=== PATIENT | female | born 1950 | race Caucasian/White ===

== ENCOUNTER 2016-06-06 12:30 | Day surgery (SDC) | payer MEDICARE, BC ==
[2016-05-30 13:20] LABS: HEMOGLOBIN 12.4 g/dL (12.0-16.0)
[2016-05-30 13:22] LABS: HEMATOCRIT 36.8 % (36.0-48.0)
[2016-05-30 13:34] LABS: ASCORBIC ACID (UR NOT ORDER) 40 (NEG); BILIRUBIN, URINE NEGATIVE (NEG); KETONE, URINE TRACE MG/DL (NEG); LEUKOCYTE ESTERASE(NOT OR MOD (NEG); WBC (NOT ORDERED) (RFLEX) 102 (0-5)
--- NOTE | ~2016-06-06 | OP ---
Record Of [address] [place]. [address] NAME: CRISTIANO OJEDA : [birth year] STATUS : [facility]#: [id number] AGE: 66 ADM/REG DATE : 06/06/16 MR#: [id number] REPORT SERV DATE: 06/06/16 DICTATED BY: MATTHEW VALDEZ JR. DATE: 06/06/16 REPORT STATUS : Draft TRANSCRIBED BY: JERICHO DATE: 06/06/16 DATE OF PROCEDURE: 06/06/2016 SURGEON: Matthew Valdez M.D. PREOPERATIVE DIAGNOSIS: Bladder cancer. POSTOPERATIVE DIAGNOSIS: Bladder cancer. PROCEDURE PERFORMED: Cystoscopy, bladder biopsy. COMPLICATIONS: None. CONSULTATIONS: None. ANESTHESIA: General with laryngeal mask airway. SPECIMENS: Bladder biopsy x3 from the left bladder wall. DRAINS: None. ESTIMATED BLOOD LOSS: None. INDICATION: Mrs. Ojeda is a 66-year-old female, who is status post resection of a Ta high- grade bladder tumor. She underwent BCG therapy x6 and comes back today for bladder biopsies. PROCEDURE IN DETAIL: After the patient was identified and proper informed consent was obtained, she was taken to the operating room. General anesthesia was performed without complication using a laryngeal mask airway. She was then prepped and draped in normal sterile fashion in the lithotomy position. Cystoscopic examination of the urethra and bladder were performed. The urethra was normal. The bladder was examined and she had some erythematous areas along the left bladder wall, but otherwise no tumors were noted or areas consistent with carcinoma in situ. Both ureteral orifices were in the normal position and normal size. Cold cup biopsy forceps were used to biopsy the left bladder wall in three areas and cauterized using a Bugbee electrode. The bladder was drained. The patient was awakened in the operating room and transferred to the postanesthesia care unit in stable condition. I will see her back in the office in approximately one week for pathology results. APRIL/JERICHO Matthew Valdez Jr., M.D. Record Of [address] [place]. [address] NAME: CRISTIANO OJEDA : [birth year] STATUS : [facility] PAT#: [id number] AGE: 66 ADM/REG DATE : 06/06/16 MR#: [id number] REPORT SERV DATE: 06/06/16 DICTATED BY: MATTHEW VALDEZ JR. DATE: 06/06/16 REPORT STATUS : Draft TRANSCRIBED BY: JERICHO DATE: 06/06/16 / [id number] CC: Lenny Muir Jr., M.D.
[~2016-06-06 12:30] MED LIST: BACDS PO; CALTRA600D PO; CIP2 PO; FISH-EPA1000 MG PO; FLOMAX4 PO; HORMONE PO; MULTIPLE VIT PO; PROLOP100 PO; PROTONIX PO; PROTONIX20 MG PO; TOPXL25 PO; ZOFRAN4 PO
[2016-06-06 13:06] LABS: BUN (BLOOD UREA NITROGEN) 11 MG/DL (6-23); CALCIUM, SERUM 8.8 MG/DL (8.5-10.4); CHLORIDE, SERUM 107 MMOL/L (96-112); CO2 (CARBON DIOXIDE) 27 MMOL/L (24-34); CREATININE 0.73 MG/DL (0.55-1.02); GFR AFRICAN AMERICAN 98 ML/MIN (>=60); GFR NON AFRICAN AMERICAN 85 ML/MIN (>=60); GLUCOSE, SERUM 91 MG/DL (60-99); POTASSIUM, SERUM 4.5 MMOL/L (3.5-5.3); SODIUM, SERUM 143 MMOL/L (135-148)
[2016-08-09] MEDS ORDERED: FOSAMAX70 MG PO (16:17)
== END 2016-06-06 17:30 | disposition home or self-care (01) ==
LOC: SDC 12:30
PROVIDERS: Urology
PROC: 0TBB8ZX Excision of Bladder, Via Natural or Artificial Opening Endoscopic, Diagnostic (ICD-10-PCS; principal; 2016-06-06 12:45)
DX: C67.9 Malignant neoplasm of bladder, unspecified (principal); K21.9 Gastro-esophageal reflux disease without esophagitis; K58.9 Irritable bowel syndrome, unspecified; Z88.2 Allergy status to sulfonamides; Z88.1 Allergy status to other antibiotic agents; Z79.899 Other long term (current) drug therapy; Z87.891 Personal history of nicotine dependence; Z96.1 Presence of intraocular lens; Z85.42 Personal history of malignant neoplasm of other parts of uterus; Z98.41 Cataract extraction status, right eye; Z98.42 Cataract extraction status, left eye; Z90.710 Acquired absence of both cervix and uterus; Z90.89 Acquired absence of other organs; Z90.722 Acquired absence of ovaries, bilateral; Z98.890 Other specified postprocedural states
CPT/HCPCS: 80048; 81001; 85014; 85018; 87077; 87086; 87186; 88305; 88341; 88342; 93005; J2250; J2405; J3010

== ENCOUNTER 2016-08-15 10:53 | Day surgery (SDC) | payer MEDICARE, BC ==
--- NOTE | ~2016-08-15 | EGD ---
EGD REPORT [facility] [address] [place] [address] NAME: CRISTIANO OJEDA : 46 STATUS : [facility] [place] PAT#: [id number] AGE: 66 ADM/REG DATE : 08/15/16 MR#: [id number] REPORT SERV DATE: 08/15/16 DICTATED BY: MANAN HUBER DATE: 08/15/16 REPORT STATUS : Draft [facility]: [facility] DATE: 08/15/16 [facility] Patient Name: Cristiano Ojeda Date of : 1950 Attending MD: MANAN HUBER MD Procedure Date No Time: 08/15/2016 Procedure: Colonoscopy Indications: Hematochezia, Endometrial and bladder cancer for which she is currently being treated Referring MD: COLLEEN CARY MD Medicines: Propofol per Anesthesia Complications: No immediate complications. Estimated blood loss: None. Procedure: Pre-Anesthesia Assessment: - After reviewing the risks and benefits, the patient was deemed in satisfactory condition to undergo the procedure. - Prior to the procedure, a History and Physical was performed, and patient medications and allergies were reviewed. The patient's tolerance of previous anesthesia was also reviewed. The risks and benefits of the procedure and the sedation options and risks were discussed with the patient. All questions were answered, and informed consent was obtained. Prior Anticoagulants: The patient has taken no previous anticoagulant or antiplatelet agents. ASA Grade Assessment: IV - A patient with severe systemic disease that is a constant threat to life. After reviewing the risks and benefits, the patient was deemed in satisfactory condition to undergo the procedure. After I obtained informed consent, the scope was passed under direct vision. Throughout the procedure, the patient's blood pressure, pulse, and oxygen saturations were monitored continuously. The CF [id number] was introduced through the anus with the intention of advancing to the cecum. The scope was advanced to the sigmoid colon before the procedure was aborted due to a stricture in the proximal sigmoid colon. Medications were given. The PCF [id number] was then introduced through the anus with the intention of advancing to the cecum. The scope was advanced to the sigmoid colon before the procedure was again aborted due to the stricture. Medications were given. The colonoscopy was performed with difficulty. The patient tolerated the procedure well. The quality of the bowel preparation was EGD REPORT [place] [address] [facility] [place]. [address] NAME: CRISTIANO OJEDA : [birth year] STATUS : [facility]#: [id number] AGE: 66 ADM/REG DATE : 08/15/16 MR#: [id number] REPORT SERV DATE: 08/15/16 DICTATED BY: MANAN HUBER DATE: 08/15/16 REPORT STATUS : Draft [facility]ANSCRIBED BY: [facility] DATE: 08/15/16 good. The bowel preparation used was polyethylene glycol (PEG). Findings: The perianal and digital rectal examinations were normal. Pertinent negatives include normal sphincter tone. Non-bleeding internal hemorrhoids were found during retroflexion and were moderate and Grade I (internal hemorrhoids that do not prolapse). Multiple small-mouthed diverticula were found in the sigmoid colon. An extrinsic moderate stenosis was found in the proximal sigmoid colon. This could not be traversed with the standard or pediatric colonoscope. The exam was otherwise without abnormality. Impression: - Non-bleeding internal hemorrhoids. - Moderate diverticulosis in the sigmoid colon. - Stricture in the proximal sigmoid colon which appears to be extrinsic and likely related to her malignancy. - The examination was otherwise normal. Recommendation: - Discharge patient to home (ambulatory). - Return to previous diet. - Continue present medications. - Perform a single contrast barium enema today. - Repeat colonoscopy in 5 years for surveillance. - Patient has a contact number available for emergencies. The signs and symptoms of potential delayed complications were discussed with the patient. Return to normal activities tomorrow. Written discharge instructions were provided to the patient. Procedure Code(s): --- Professional --- 34384, 53, Colonoscopy, flexible, proximal to splenic flexure; diagnostic, with or without collection of specimen(s) by brushing or washing, with or without colon decompression (separate procedure) Diagnosis Code(s): --- Professional --- K64.0, First degree hemorrhoids K57.30, Diverticulosis of large intestine without perforation or abscess without bleeding K56.69, Other intestinal obstruction K92.1, Melena CPT copyright 2013 [employer]. All rights reserved. The codes documented in this report are preliminary and upon certified professional coder review may be revised to meet current compliance requirements. EGD REPORT [facility] [address] [place] [address] NAME: CRISTIANO OJEDA : [birth year] STATUS : [facility]#: [id number] AGE: 66 ADM/REG DATE : 08/15/16 MR#: [id number] REPORT SERV DATE: 08/15/16 DICTATED BY: MANAN HUBER DATE: 08/15/16 REPORT STATUS : Draft TRANSCRIBED BY: [facility] DATE: 08/15/16 MANAN HUBER MD 08/15/2016 1:04 PM This report has been signed electronically. Number of Addenda: 0 Note Initiated On: 08/15/2016 12:32 PM Scope Withdrawal Time 0 hours 0 minutes 0 seconds [id number] [id number]
--- NOTE | ~2016-08-15 | EGD ---
EGD REPORT [facility] [address] [place] [address] NAME: CRISTIANO OJEDA : 46 [place] [facility] [place]#: [id number] AGE: 66 ADM/REG DATE : 08/15/16 MR#: [id number] REPORT SERV DATE: 08/15/16 DICTATED BY: MANAN HUBER DATE: 08/15/16 REPORT STATUS : Draft [facility]: [facility] DATE: 08/15/16 Endoscopy Center Patient Name: Cristiano Ojeda Date of : 1950 Attending MD: MANAN HUBER MD Procedure Date No Time: 08/15/2016 Procedure: Upper GI endoscopy Indications: Gastro-esophageal reflux disease Referring MD: COLLEEN CARY MD Medicines: Propofol per Anesthesia Complications: No immediate complications. Estimated blood loss: None. Procedure: Pre-Anesthesia Assessment: - After reviewing the risks and benefits, the patient was deemed in satisfactory condition to undergo the procedure. - Prior to the procedure, a History and Physical was performed, and patient medications and allergies were reviewed. The patient's tolerance of previous anesthesia was also reviewed. The risks and benefits of the procedure and the sedation options and risks were discussed with the patient. All questions were answered, and informed consent was obtained. Prior Anticoagulants: The patient has taken no previous anticoagulant or antiplatelet agents. ASA Grade Assessment: IV - A patient with severe systemic disease that is a constant threat to life. After reviewing the risks and benefits, the patient was deemed in satisfactory condition to undergo the procedure. After obtaining informed consent, the endoscope was passed under direct vision. Throughout the procedure, the patient's blood pressure, pulse, and oxygen saturations were monitored continuously. The GIF [id number] [id number] was introduced through the mouth, and advanced to the third part of duodenum. The upper GI endoscopy was accomplished without difficulty. The patient tolerated the procedure well. Findings: Diffuse mild erythema was found in the lower third of the esophagus. The entire examined stomach and gastroesophageal junction (on retroflexion) were normal. The examined duodenum was normal. Impression: - Erythema in the lower third of the esophagus. - Normal stomach and gastroesophageal junction. EGD REPORT [address] [address] NAME: CRISTIANO OJEDA : 46 [place] : [place] [facility] [place]#: [id number] AGE: 66 ADM/REG DATE : 08/15/16 MR#: [id number] REPORT SERV DATE: 08/15/16 DICTATED BY: MANAN HUBER DATE: 08/15/16 REPORT STATUS : Draft TRANSCRIBED BY: [facility] DATE: 08/15/16 - Normal examined duodenum. - Non-erosive esophageal reflux (NERD) disease present. Recommendation: - Discharge patient to home (ambulatory). - Return to previous diet. - Continue present medications. - Begin Protonix (pantoprazole) 40 mg each morning. - Take Pepcid (famotidine) 20 mg at bedtime until completed. - Perform a colonoscopy today. - Patient has a contact number available for emergencies. The signs and symptoms of potential delayed complications were discussed with the patient. Return to normal activities tomorrow. Written discharge instructions were provided to the patient. Procedure Code(s): --- Professional --- 73113, Esophagogastroduodenoscopy, flexible, transoral; diagnostic, including collection of specimen(s) by brushing or washing, when performed (separate procedure) Diagnosis Code(s): --- Professional --- K22.9, Disease of esophagus, unspecified K21.9, Gastro-esophageal reflux disease without esophagitis CPT copyright 2013 [employer]. All rights reserved. The codes documented in this report are preliminary and upon rotary furnace tender review may be revised to meet current compliance requirements. MANAN HUEBR MD 08/15/2016 12:43 PM This report has been signed electronically. Number of Addenda: 0 Note Initiated On: 08/15/2016 12:34 PM Scope Withdrawal Time 0 hours 0 minutes 0 seconds [id number] [id number]
[~2016-08-15 10:53] MED LIST changes: +FOSAMAX70 MG PO
== END 2016-08-15 23:59 | disposition home or self-care (01) ==
LOC: DMU 10:53
PROVIDERS: Internal Medicine Gastroenterology
PROC: 0DJ08ZZ Inspection of Upper Intestinal Tract, Via Natural or Artificial Opening Endoscopic (ICD-10-PCS; principal; 2016-08-15 12:00)
PROC: 0DJD8ZZ Inspection of Lower Intestinal Tract, Via Natural or Artificial Opening Endoscopic (ICD-10-PCS; 2016-08-15 12:00)
DX: K22.9 Disease of esophagus, unspecified (principal); K21.9 Gastro-esophageal reflux disease without esophagitis; K64.0 First degree hemorrhoids; K57.30 Diverticulosis of large intestine without perforation or abscess without bleeding; K56.69 Other intestinal obstruction; K92.1 Melena; Z88.2 Allergy status to sulfonamides
CPT/HCPCS: 74270